=== PATIENT | female | born 1995 | race Caucasian/White ===

== ENCOUNTER → 2018-09-28 | Outpatient (CLI) | payer BC ==
[2018-09-28 16:51] LABS: URINE APPEARANCE CLEAR; URINE COLOR YELLOW
[2018-09-28 16:52] LABS: URINE BILIRUBIN NEGATIVE (NEGATIVE); URINE BLOOD TRACE (NEGATIVE); URINE GLUCOSE NEGATIVE (NEGATIVE); URINE KETONE NEGATIVE (NEGATIVE); URINE LEUKOCYTE ESTERASE TRACE (NEGATIVE); URINE NITRATE NEGATIVE (NEGATIVE); URINE PROTEIN(semi-quant) TRACE mg/dL (NEGATIVE); URINE UROBILINOGEN NORMAL (NORMAL); URINE WBC 0-1 /hpf (0-3)
[2018-09-28 19:25] LABS: CLUE CELLS PRESENT (Not Observd)
== END ==
LOC: LAB 13:00
PROVIDERS: Physician Assistant
DX: N89.8 Other specified noninflammatory disorders of vagina (principal)
CPT/HCPCS: Q0111

== ENCOUNTER 2019-05-20 21:34 | Emergency (ER) | payer SELFPAY ==
[2019-05-20] MEDS ORDERED: ZOVIRAX400 M1 PO (21:53)
[2019-05-20] MEDS ORDERED: BACTRIM DS TAB1 EACH PO (21:53)
[2019-05-20 22:07] LABS: HEMATOCRIT 39.2 % (37.0-47.0); MEAN CELL VOLUME 91 fl (78-100); MEAN CORPUSCULAR HEMOGLOBIN 30 pg (27-31); MEAN CORPUSCULAR HGB CONC 33 g/dL (33-37); MEAN PLATELET VOLUME 10.5 fl (7.4-10.4); PLATELET COUNT 143 K/mm3 (130-400); RED BLOOD COUNT 4.33 M/mm3 (4.10-5.30); RED CELL DISTRIBUTION WIDTH 12.6 % (11.5-14.5); WHITE BLOOD COUNT 4.7 K/mm3 (4.8-10.8)
[2019-05-20 22:21] LABS: BAND 13 % (0-10); LYMPHOCYTE 5 % (20-51); MONOCYTE 3 % (3-10); NEUTROPHILS 73 % (42-75)
[2019-05-20] MEDS ORDERED: PREDNISONE10 MG PO (22:58)
[2019-05-20 23:08] VITALS: BP 115/58
== END 2019-05-20 23:08 | disposition home or self-care (01) ==
LOC: ED 21:34
PROVIDERS: Nurse Practitioner
DX: L50.9 Urticaria, unspecified (principal); F17.210 Nicotine dependence, cigarettes, uncomplicated
CPT/HCPCS: J1200; J2930; J3490

== ENCOUNTER 2019-05-21 11:27 | Emergency (ER) | payer SELFPAY ==
[~2019-05-21] VITALS: Wt 59.1 kg
[~2019-05-21 11:27] MED LIST: BACTRIM DS TAB1 EACH PO; PREDNISONE10 MG PO; ZOVIRAX400 M1 PO
[2019-05-21 15:11] LABS: HEMATOCRIT 35.3 % (37.0-47.0); HEMOGLOBIN 11.5 g/dL (12.5-16.0); MEAN CELL VOLUME 92 fl (78-100); MEAN CORPUSCULAR HEMOGLOBIN 30 pg (27-31); MEAN CORPUSCULAR HGB CONC 33 g/dL (33-37); MEAN PLATELET VOLUME 10.7 fl (7.4-10.4); PLATELET COUNT 147 K/mm3 (130-400); RED BLOOD COUNT 3.84 M/mm3 (4.10-5.30); RED CELL DISTRIBUTION WIDTH 12.3 % (11.5-14.5); WHITE BLOOD COUNT 7.9 K/mm3 (4.8-10.8)
[2019-05-21 15:27] LABS: ALBUMIN 3.7 g/dL (3.5-5.0)
[2019-05-21 15:28] LABS: POTASSIUM 3.5 mmol/L (3.5-5.1)
[2019-05-21 15:29] LABS: CALCIUM 8.2 mg/dL (8.3-10.5)
[2019-05-21 15:30] LABS: TOTAL PROTEIN 6.8 g/dL (6.4-8.3)
[2019-05-21 15:32] LABS: TOTAL BILIRUBIN 0.7 mg/dL (0.2-1.2)
[2019-05-21 15:33] LABS: BAND 2 % (0-10); LYMPHOCYTE 5 % (20-51); MONOCYTE 1 % (3-10); NEUTROPHILS 92 % (42-75)
[2019-05-21 15:58] LABS: URINE APPEARANCE HAZY; URINE COLOR YELLOW
[2019-05-21 15:59] LABS: PH-URINE 5.5 (5.0 - 8.0); URINE BILIRUBIN NEGATIVE (NEGATIVE); URINE BLOOD TRACE (NEGATIVE); URINE GLUCOSE 50 mg/dL mg/dL (NEGATIVE); URINE KETONE NEGATIVE (NEGATIVE); URINE LEUKOCYTE ESTERASE 1+ (NEGATIVE); URINE NITRATE NEGATIVE (NEGATIVE); URINE PROTEIN(semi-quant) NEGATIVE (NEGATIVE); URINE UROBILINOGEN NORMAL (NORMAL)
[2019-05-21 16:00] LABS: URINE MUCUS PRESENT (NOT PRESENT)
[2019-05-21 16:29] LABS: ERYTHROCYTE SEDIMENTATION RATE 19 mm/hr (0-20)
[2019-05-21 17:35] VITALS: BP 124/76
== END 2019-05-21 17:37 | disposition home or self-care (01) ==
LOC: ED 11:27
PROVIDERS: Nurse Practitioner Family
DX: L27.0 Generalized skin eruption due to drugs and medicaments taken internally (principal); T37.0X5A Adverse effect of sulfonamides, initial encounter; D72.825 Bandemia; F17.210 Nicotine dependence, cigarettes, uncomplicated; Z88.0 Allergy status to penicillin; Z88.2 Allergy status to sulfonamides; Z79.52 Long term (current) use of systemic steroids
CPT/HCPCS: J0171; J1200; J2930; J3490; J7030